=== PATIENT | female | born 1960 | race American Indian/Alaskan Native ===

== ENCOUNTER 2017-05-10 10:08 | Emergency (ER) | payer BC, OTHER ==
[2017-05-10 10:44] VITALS: BP 118/75
[2017-05-10 11:14] LABS: Basophils # (Auto) 0.1 K/mm3 (0.0-0.1); Basophils % (Auto) 1.3 % (0.0-1.8); Eosinophils # (Auto) 0.3 K/mm3 (0.0-0.4); Eosinophils % (Auto) 5.5 % (0.0-4.3); Hematocrit 37.4 % (30.3-42.9); Hemoglobin 11.5 gm/dl (10.1-14.3); Lymphocytes # (Auto) 1.8 K/mm3 (1.2-5.4); Lymphocytes % (Auto) 32.8 % (13.4-35.0); Mean Corpuscular HGB Conc 31 % (30-34); Mean Corpuscular Volume 77 fl (79-97); Monocytes # (Auto) 0.7 K/mm3 (0.0-0.8); Monocytes % (Auto) 13.2 % (0.0-7.3); Platelet Count 322 K/mm3 (140-440); Red Blood Count 4.88 M/mm3 (3.65-5.03); Red Cell Distribution Width 14.4 % (13.2-15.2)
[2017-05-10 11:32] LABS: Mean Corpuscular Hemoglobin 24 pg (28-32)
[2017-05-10 11:34] LABS: Mucus,Urine FEW /HPF
[2017-05-10 11:38] LABS: Bilirubin,Urine NEG (Negative); Blood,Urine NEG (Negative); Color,Urine Yellow (Yellow); Nitrite,Urine NEG (Negative); Protein,Urine <15 mg/dL mg/dL (Negative); Urobilinogen,Urine < 2.0 mg/dL (<2.0)
--- NOTE | 2017-05-10 17:43 | XRay Report ---
FINAL REPORT EXAM: XR SPINE LUMBOSACRAL 2-3V HISTORY: low back pain TECHNIQUE: Lumbar spine five views PRIORS: None. FINDINGS: Vertebral bodies demonstrate normal height and alignment. The disc spaces are within normal limits. There is no evidence of spondylolisthesis. Transverse and spinous processes are intact SI joints are unremarkable. IMPRESSION: Negative lumbar spine series
--- NOTE | 2017-05-10 17:52 | Emergency Department Report ---
ED Back Pain/Injury HPI - General Chief Complaint: Back Pain/Injury Stated Complaint: BACK PAIN/CP Time Seen by Provider: 05/10/17 16:00 Source: patient Mode of arrival: Ambulatory Limitations: No Limitations - History of Present Illness Initial Comments: This is a 57 y.o. female presents with low back pain that is radiating down right leg. She is followed by PCP at [place]. She have an appointment tomorrow with PCP but pain is 10/10. She was recently taken off meloxicam for elevated kidney function. She was given zanaflex for muscle spams but she can't take that and work. Denies numbness, tingling, chest pain, SOB, and abdominal pain. MD Complaint: back pain -: days(s) (3), week(s) Similar Symptoms Previously: Yes (treated for muscle spasms by PCP at [place]) Place: home, work Radiation: right leg Severity: severe Severity scale (0 -10): 8 Quality: sharp, aching Consistency: intermittent Improves With: medication (zanaflex) Worsens With: movement, walking Context: unknown Associated Symptoms: difficulty walking - Related Data Home Medications Medication Instructions Recorded Confirmed Last Taken Albuterol Sulfate [Ventolin HFA] 2 puff IH Q4H PRN 09/18/14 09/18/14 Unknown Bcp 1 tab PO DAILY 09/18/14 09/25/14 09/19/14 Triamter/Hctz 75-50 mg [Maxzide 1 tab PO QDAY 09/18/14 09/25/14 09/24/14 22:00 75-50 mg] amLODIPine/VALSARTAN [Exforge 1 each PO DAILY 09/18/14 09/25/14 09/24/14 22:00 10-320 mg Tablet] Previous Rx's Medication Instructions Recorded Last Taken Type Ondansetron [Zofran Odt] 8 mg PO Q8HR PRN #20 tab.rapdis 08/13/14 Unknown Rx Tramadol HCl [traMADol] 50 mg PO Q6HR PRN #20 tablet 08/13/14 09/04/14 Rx traMADol [Ultram 50 MG tab] 50 mg PO Q6HR PRN #20 tablet 05/10/17 Unknown Rx Allergies Allergy/AdvReac Type Severity Reaction Status Date / Time No Known Allergies Allergy Verified 08/13/14 12:17 ED Review of Systems ROS: Stated complaint: BACK PAIN/CP Other details as noted in HPI Constitutional: denies: chills, fever Respiratory: denies: cough, shortness of breath, wheezing Cardiovascular: denies: chest pain, palpitations Gastrointestinal: denies: abdominal pain, nausea, diarrhea Genitourinary: denies: urgency, dysuria, discharge Musculoskeletal: back pain (low back pain radiating down RLE) Neurological: denies: headache, weakness, numbness, paresthesias ED Back Pain Physical Exam - Exam General: Vital signs noted. No distress. Alert and acting appropriately. Back/Abdomen: Yes Sacroiliac Tenderness (midline tenderness, paraspinal muscle spasm mild on right), Yes Straight Leg Raise Pain (positive on the right), No Abdominal Tenderness, No Perithoracic Tenderness, No Perilumbar Tenderness, No Flank Tenderness Neuro: Yes Normal Sensation, Yes Normal DTR's, Yes Normal Gait, No Motor Weakness ED Course Vital Signs 05/10/17 10:38 Temperature 98.9 F Pulse Rate 90 Respiratory 20 Rate Blood Pressure 118/75 O2 Sat by Pulse 96 Oximetry Ed Back Pain Tests - Tests Tests: Normal UA, Normal X Rays (negative lumbar spine series) ED Medical Decision Making - Lab Data Result diagrams: 05/10/17 10:47 05/10/17 10:47 - Radiology Data Radiology results: image reviewed Negative lumbar spine series. Critical care attestation.: If time is entered above; I have spent that time in minutes in the direct care of this critically ill patient, excluding procedure time. ED Disposition Clinical Impression: Muscle spasm of back Back pain Qualifiers: Back pain location: low back pain Chronicity: chronic Back pain laterality: midline Sciatica presence: with sciatica Sciatica laterality: sciatica of right side Qualified Code(s): M54.41 - Lumbago with sciatica, right side Disposition: - TO HOME OR SELFCARE Is pt being admited?: No Does the pt Need Aspirin: No Condition: Stable Instructions: Lumbar Radiculopathy (ED), Muscle Spasm (ED), Chronic Back Pain ( ED) Additional Instructions: Follow up with Primary Care Provider. Prescriptions: traMADol [Ultram 50 MG tab] 50 mg PO Q6HR PRN #20 tablet PRN Reason: Pain Referrals: PRIMARY CARE, [Primary Care Provider] - 3-5 Days Forms: Work/School Release Form Time of Disposition: 18:26 Print Language: KAZAKH
== END 2017-05-10 18:37 | disposition home or self-care (01) ==
LOC: ED 10:08
DX: M62.830 Muscle spasm of back (principal)
CPT/HCPCS: 36415; 72100; 80048; 81001; 85025; 99284